=== PATIENT | female | born 1990 | race Caucasian/White ===

== ENCOUNTER 2016-11-12 15:53 | Emergency (ER) | payer OTHER ==
[~2016-11-12] VITALS: Ht 165.1 cm; Wt 69.1 kg
[2016-11-12 15:54] VITALS: BP 107/67
[2016-11-12] MEDS ORDERED: DOXY50CA26 PO (16:06)
[2016-11-12] MEDS ORDERED: AZITHROMYCIN 250 MG TAB PO ONE (16:15)
[2016-11-12] MEDS ORDERED: cefTRIAXone SOD 250 MG VIAL (J0696) IM ONE (16:15)
[2016-11-12] MEDS ORDERED: LIDOCAINE 1% MDV 20ML VIAL As Ordered ONE (16:19)
== END 2016-11-12 16:51 | disposition home or self-care (01) ==
LOC: M ED 15:53
DX: Z20.2 Contact with and (suspected) exposure to infections with a predominantly sexual mode of transmission (principal); L70.9 Acne, unspecified
CPT/HCPCS: 87491; 87591; 96372; 99282; J0696